=== PATIENT | male | born 2000 | race Caucasian/White ===

== ENCOUNTER 2018-07-14 20:15 | Emergency (ER) | payer MEDICAID ==
[~2018-07-14] VITALS: Ht 157.5 cm; Wt 51.3 kg
[2018-07-14 20:23] VITALS: Ht 157.5 cm; Wt 51.3 kg
[2018-07-14 21:15] LABS: BASOPHIL % 0.4 % (0-2); PLATELET COUNT 172 x10^3mcL (130-400); RED CELL DISTRIBUTION WIDTH 12.2 % (11.5-14.5)
[2018-07-14 21:23] LABS: CALCIUM 9.9 mg/dL (8.5-10.1); CHLORIDE SERUM 104 mmol/L (98-107); GFR1 > 60 mL/min; GLUCOSE SERUM 108 mg/dL (74-106)
[2018-07-14 21:28] LABS: ALBUMIN 4.5 g/dL (3.4-5.0); ALKALINE PHOSPHATASE 82 U/L (46-116); ALT/SGPT 27 U/L (16-63); AST/SGOT 17 U/L (15-37); BILIRUBIN TOTAL 0.7 mg/dL (0.20-1.00); LIPASE 85 IU/L (73-393)
[2018-07-14 21:29] LABS: TOTAL PROTEIN, SERUM 8.3 g/dL (6.4-8.2)
[2018-07-14 21:30] LABS: CARBON DIOXIDE 27.5 mmol/L (21-32); POTASSIUM SERUM 3.4 mmol/L (3.5-5.1); SODIUM SERUM 145 mmol/L (136-145)
[2018-07-14 22:33] VITALS: BP 120/80
== END 2018-07-14 22:33 | disposition home or self-care (01) ==
LOC: ED 20:15
PROVIDERS: Emergency Medicine
DX: R10.31 Right lower quadrant pain (principal)
CPT/HCPCS: 36415